=== PATIENT | male | born 1945 | race African-American/Black ===

== ENCOUNTER 2017-04-21 10:06 | Emergency (ER) | payer SELFPAY ==
[~2017-04-21] VITALS: Ht 177.8 cm; Wt 80.9 kg
[~2017-04-21 10:06] MED LIST: ATENOLOL50 MG PO; BACTRIM DS 8001 TAB PO; BENADRYL25 M2 PO; CARTIA XT300 MG PO; CEPHALEXIN500 M1 PO; COZAAR100 MG PO; GLUCOPHAGE1000 MG PO; GLYBURIDE MICRON3 MG PO; HCTZ 25MG25 MG PO; LORATADINE10 MG PO; METFORMIN HCL500 M1 PO; MINIPRESS2 MG PO; MOTRIN 800800 MG/TAB PO; NEURONTIN300 MG/CAP PO; POTASSIUM CHLO10 ME2 PO; PREDNISONE10 MG PO; SILDENAFIL; SIMVASTATIN10 MG PO; ZOLOFT 100MG100 MG PO
[2017-04-21 10:19] VITALS: TEMP 98
[2017-04-21 10:48] LABS: BASO % 0.6 % (0.0-2.0); EOS # 0.1 (0.0-0.7); EOS % 1.4 % (0-4.0); GRAN # 3.5 (1.4-6.5); GRAN % 54.1 % (42.2-75.2); HEMATOCRIT 42.8 % (42.0-52.0); HEMOGLOBIN 14.6 g/dl (13.5-18.0); LYMPH # 2.3 (1.2-3.4); LYMPH % 35.7 % (20.0-51.0); MEAN CELL VOLUME 88 fl (80.0-100.0); MEAN CORPUSCULAR HEMOGLOBIN 30 pg (27.0-31.0); MEAN CORPUSCULAR HGB CONC 34 g/dl (33.0-37.0); MEAN PLATELET VOLUME 10.1 fl (7.4-10.4); MONO # 0.5 (0.1-0.6); PLATELET COUNT 215 K/mm3 (130-400); RED BLOOD COUNT 4.89 M/mm3 (4.20-5.60); REDCELL DISTRIBUTION WIDTH-CV 12.9 % (11.5-14.5)
[2017-04-21 10:54] LABS: PARTIAL THROMBOPLASTIN TIME 20.7 SECONDS (26.0-37.0)
[2017-04-21 10:58] LABS: ALANINE AMINOTRANSFERASE 34 U/L (21-72); ALBUMIN 4.5 gm/dL (3.5-5.0); ALKALINE PHOSPHATASE 56 U/L (50-136); ANION GAP 9 mmol/L (7-16); AST,SGOT 24 U/L (15-37); BILIRUBIN,TOTAL 0.1 mg/dL (0.0-1.0); BLOOD UREA NITROGEN 14 mg/dL (9-20); CALCIUM 9.7 mg/dL (8.4-10.2); CARBON DIOXIDE 24 mmol/L (22-30); CHLORIDE 104 mmol/L (98-107); CREATININE, serum 0.78 mg/dL (0.66-1.25); GLUCOSE 155 mg/dL (74-106); SODIUM 137 mmol/L (137-145); TOTAL PROTEIN 7.4 gm/dL (6.4-8.2)
[2017-04-21 11:10] LABS: TROPONIN-I < 0.012 ng/mL (0.000-0.034)
[2017-04-21 13:33] VITALS: BP 111/92; PULSE 50
== END 2017-04-21 13:34 | disposition home or self-care (01) ==
LOC: COL.ER 10:06
PROVIDERS: Family Medicine
DX: R07.9 Chest pain, unspecified (principal); I10 Essential (primary) hypertension; F17.290 Nicotine dependence, other tobacco product, uncomplicated; Z79.84 Long term (current) use of oral hypoglycemic drugs
CPT/HCPCS: J1885

== ENCOUNTER 2019-04-04 17:29 | Emergency (ER) | payer OTHER ==
[~2019-04-04] VITALS: Ht 177.8 cm; Wt 75.0 kg
[2019-04-04 17:54] VITALS: BP 98/63; TEMP 97.7
[2019-04-04 18:47] LABS: BASO # 0.1 (0.0-0.2); BASO % 0.7 % (0.0-2.0); EOS # 0.2 (0.0-0.7); EOS % 2.1 % (0-4.0); GRAN # 3.9 (1.4-6.5); GRAN % 50.9 % (42.2-75.2); HEMATOCRIT 42.4 % (42.0-52.0); HEMOGLOBIN 14.6 g/dl (13.5-18.0); LYMPH # 2.9 (1.2-3.4); LYMPH % 38.1 % (20.0-51.0); MEAN CELL VOLUME 86 fl (80.0-100.0); MEAN CORPUSCULAR HEMOGLOBIN 30 pg (27.0-31.0); MEAN CORPUSCULAR HGB CONC 34 g/dl (33.0-37.0); MEAN PLATELET VOLUME 10.7 fl (7.4-10.4); MONO # 0.6 (0.1-0.6); MONO % 7.9 % (1.7-9.3); PLATELET COUNT 180 K/mm3 (130-400); RED BLOOD COUNT 4.93 M/mm3 (4.20-5.60); REDCELL DISTRIBUTION WIDTH-CV 12.2 % (11.5-14.5)
[2019-04-04 19:02] LABS: ALANINE AMINOTRANSFERASE 26 U/L (21-72); ALBUMIN 4.3 gm/dL (3.5-5.0); ALKALINE PHOSPHATASE 73 U/L (50-136); ANION GAP 9 mmol/L (7-16); AST,SGOT 33 U/L (15-37); BILIRUBIN,TOTAL 0.3 mg/dL (0.0-1.0); BLOOD UREA NITROGEN 19 mg/dL (9-20); CALCIUM 9.9 mg/dL (8.4-10.2); CARBON DIOXIDE 27 mmol/L (22-30); CHLORIDE 101 mmol/L (98-107); CREATININE, serum 0.76 (0.66-1.25); GLUCOSE 230 mg/dL (74-106); LIPASE 193 U/L (23-300); POTASSIUM 3.5 mmol/L (3.4-5.0); SODIUM 137 mmol/L (137-145); TOTAL PROTEIN 7.2 gm/dL (6.4-8.2)
[2019-04-04 19:10] LABS: C-REACTIVE PROTEIN < 0.5 mg/dL (0.0-0.9)
[2019-04-04 19:11] LABS: TROPONIN-I < 0.012 ng/mL (0.000-0.035)
[2019-04-04 19:23] LABS: ERYTHROCYTE SEDIMENTATION RATE 6 mm/hr (0-30)
[2019-04-04 19:36] LABS: COLLECTION METHOD CLEAN CATCH
[2019-04-04 19:43] LABS: MUCOUS Present /lpf; PH 5 (5-8); SQUAMOUS EPITHELIAL None Seen /hpf; URINE APPEARANCE Clear; URINE BACTERIA None Seen /hpf; URINE BILIRUBIN Negative (NEGATIVE); URINE BLOOD Negative (NEGATIVE); URINE COLOR Yellow; URINE GLUCOSE Negative (NEGATIVE); URINE KETONE Negative (NEGATIVE); URINE LEUKOCYTE ESTERASE Negative (NEGATIVE); URINE NITRATE Negative (NEGATIVE); URINE PROTEIN(semi-quant) Negative (NEGATIVE); URINE RBC 0-2 /hpf; URINE UROBILINOGEN Negative (NEGATIVE)
[2019-04-04 21:15] VITALS: PULSE 50
== END 2019-04-04 21:15 | disposition home or self-care (01) ==
LOC: COL.ER 17:29
PROVIDERS: Emergency Medicine
DX: K42.9 Umbilical hernia without obstruction or gangrene (principal); R51 Headache; E11.9 Type 2 diabetes mellitus without complications; I10 Essential (primary) hypertension; E78.5 Hyperlipidemia, unspecified; Z79.1 Long term (current) use of non-steroidal anti-inflammatories (NSAID); Z79.84 Long term (current) use of oral hypoglycemic drugs
CPT/HCPCS: J2405; J3010; J7030; Q9967

== ENCOUNTER → 2020-01-08 | Outpatient (CLI) | payer OTHER | LOC: COL.RAD 09:55 | DX: E11.42 Type 2 diabetes mellitus with diabetic polyneuropathy (principal); M51.36 Other intervertebral disc degeneration, lumbar region; M47.816 Spondylosis without myelopathy or radiculopathy, lumbar region; M48.061 Spinal stenosis, lumbar region without neurogenic claudication ==

== ENCOUNTER 2020-03-01 09:31 | Inpatient (IN) | payer OTHER ==
[~2020-03-01] VITALS: Ht 177.8 cm; Wt 80.6 kg
[~2020-03-01 09:31] MED LIST changes: -ATENOLOL50 MG PO; +HCTZ 25MG TAB25 MG PO; -HCTZ 25MG25 MG PO; +TENORMIN 5050 MG/TAB PO
[2020-03-01 09:54] LABS: BASO # 0.1 (0.0-0.2); BASO % 0.7 % (0.0-2.0); EOS # 0.1 (0.0-0.7); EOS % 1.9 % (0-4.0); GRAN # 4.9 (1.4-6.5); GRAN % 66.8 % (42.2-75.2); HEMOGLOBIN 12.1 g/dl (13.5-18.0); LYMPH # 1.7 (1.2-3.4); LYMPH % 22.4 % (20.0-51.0); MEAN CELL VOLUME 86 fl (80.0-100.0); MEAN CORPUSCULAR HEMOGLOBIN 28 pg (27.0-31.0); MEAN CORPUSCULAR HGB CONC 33 g/dl (33.0-37.0); MEAN PLATELET VOLUME 9.7 fl (7.4-10.4); MONO # 0.6 (0.1-0.6); MONO % 7.9 % (1.7-9.3); PLATELET COUNT 269 K/mm3 (130-400); RED BLOOD COUNT 4.28 M/mm3 (4.20-5.60); REDCELL DISTRIBUTION WIDTH-CV 13.6 % (11.5-14.5)
[2020-03-01 09:56] LABS: HEMATOCRIT 36.7 % (42.0-52.0)
[2020-03-01 10:05] LABS: ALANINE AMINOTRANSFERASE 16 U/L (4-49); ALBUMIN 4.1 gm/dL (3.5-5.0); ALKALINE PHOSPHATASE 49 U/L (50-136); ANION GAP 8 mmol/L (7-16); AST,SGOT 37 U/L (15-37); BILIRUBIN,TOTAL 0.2 mg/dL (0.0-1.0); BLOOD UREA NITROGEN 11 mg/dL (9-20); CALCIUM 9.3 mg/dL (8.4-10.2); CARBON DIOXIDE 23 mmol/L (22-30); CHLORIDE 106 mmol/L (98-107); CREATININE, serum 0.78 (0.66-1.25); GLUCOSE 150 mg/dL (74-106); POTASSIUM 3.9 mmol/L (3.4-5.0); SODIUM 137 mmol/L (137-145); TOTAL PROTEIN 6.9 gm/dL (6.4-8.2)
[2020-03-01 10:18] LABS: TROPONIN-I < 0.012 ng/mL (0.000-0.035)
[2020-03-01] MEDS ORDERED: LIPITOR 40MG TA40 MG PO (12:21)
[2020-03-01] MEDS ORDERED: ASPIRIN 81M81 MG/TA2 PO (12:22)
[2020-03-01 15:01] VITALS: BP 145/55; PULSE 57; TEMP 98.5
--- NOTE | 2020-03-01 15:25 | NUR ---
Patient up to room 326 from ER. Alert and oriented x 3. Assessment complete. Chest tube to right chest to LIS; having bloody drainage. Patient denies pain when laying in bed, but increased pain with movement. Refuses pain meds at this time. Denies further needs at this time.
--- NOTE | 2020-03-01 17:23 | NUR ---
Educated patient on insulin and holding metformin for hospital stay.
--- NOTE | 2020-03-01 18:01 | NUR ---
Patient doing well this afternoon. Educated on chest tube. Denies pain at this time. Remains on 2L O2 via NC. Denies further needs at this time. Will report off to nightclub manager.
--- NOTE | 2020-03-01 20:00 | NUR ---
Report received, assumed care for night custodian. Assessment complete. A&Ox3. Denies pain/nausea/shortness of breath. VS stable. Chest tube to right side-dressing CDI-continuous suction @20cm. Plan of care discussed for this shift to include HS meds/insulin/chest tube/calling for questions/concerns. Verbalizes understanding. Voicing concnerns about insulin vs PO diabetic meds. States blood sugars are never as high as they are right now and the insulin seems to not be working. After long discussion-too 4 units of novolog and agreed to recheck bedside glucose at 0000. Denies any other questions/concerns. Call light in reach. Will monitor.
[2020-03-01 20:27] VITALS: BP 138/52; PULSE 5; TEMP 98.2
[2020-03-02] VITALS (7 sets, daily range): BP systolic 121–160; BP diastolic 46–56; PULSE 42–55; TEMP 97.9–98.3
--- NOTE | 2020-03-02 00:15 | NUR ---
As requested-bedside glucose [id number] receiving HS dose of sliding scale Novolog. States he is happy with this result. Chest tube at continuous suction at 20cm-reddish return. Denies pain/needs. Call light in reach. Will monitor.
--- NOTE | 2020-03-02 00:30 | NUR ---
Called with c/o cough/congestion. Requesting robitussin. KYLE Downs notified and new order received. Will continue to monitor.
--- NOTE | 2020-03-02 06:00 | NUR ---
Rested well this shift. Chest tube to right side-dressing remained CDI-total output for this shift 25ml reddish fluid. Denies pain/nausea/short of breath. VS remained stable. Was happy to see blood sugar did get better with sliding scale. Denies current needs. Call light in reach. Will monitor.
[2020-03-02 06:53] LABS: BASO % 0.2 % (0.0-2.0); EOS % 0.1 % (0-4.0); GRAN % 73.7 % (42.2-75.2); HEMOGLOBIN 10.4 g/dl (13.5-18.0); LYMPH # 1.9 (1.2-3.4); LYMPH % 17.2 % (20.0-51.0); MEAN CELL VOLUME 86 fl (80.0-100.0); MEAN CORPUSCULAR HEMOGLOBIN 28 pg (27.0-31.0); MEAN CORPUSCULAR HGB CONC 33 g/dl (33.0-37.0); MEAN PLATELET VOLUME 10.1 fl (7.4-10.4); MONO # 0.9 (0.1-0.6); MONO % 8.2 % (1.7-9.3); PLATELET COUNT 240 K/mm3 (130-400); RED BLOOD COUNT 3.69 M/mm3 (4.20-5.60); REDCELL DISTRIBUTION WIDTH-CV 13.2 % (11.5-14.5)
[2020-03-02 06:59] LABS: HEMATOCRIT 31.6 % (42.0-52.0)
[2020-03-02 07:01] LABS: CALCIUM 8.6 mg/dL (8.4-10.2); CREATININE, serum 0.69 (0.66-1.25); POTASSIUM 3.7 mmol/L (3.4-5.0)
--- NOTE | 2020-03-02 08:00 | NUR ---
PATIENT IS A&O. VSS. NO C/O PAIN THIS AM. CHEST TUBE TO LIS AT 20. NOTED SMALL AMOUNTS OF BLOODY DRAINAGE IN CHEST TUBE. 02 @ 2L. NO C/O SOA AT REST, SOME DYSPNEA WITH ACTIVITY. RIGHT LUNG FIELD DEMINISHED IN BASES AND COARSE. PT/OT CONSULTED. AM MEDS GIVEN. NO C/O N/V. TOLERATING ADA DIET. HEAD TO TOE ASSESSMENT COMPLETE. CALL LIGHT IN REACH.
--- NOTE | 2020-03-02 10:39 | NUR ---
SW met with patient to conduct intake evaluation. Patient lives at home in [place] with his Jessica (P# [phone]). Patient reports no needs with activities of daily living and requires no medical equipment. Patient reports that he does not have a DPOA and does not wish to fill out paperwork at this time. Patient sees a doctor at the NH in [place] and uses the NH for medications. PT/OT notes recommend Home at this time. Patient denies questions or concerns at this time. Social work will continue to follow.
--- NOTE | 2020-03-02 19:45 | NUR ---
Report received, assumed care for business area director. Assessment complete. VS stable. A&Ox3. Denies shortness of breath/nausea. States "I get a little winded when I get up to walk." C/O pain to right chest-described as intermittent sharp pains and constant ache. Rating pain 6/10 on pain scale-hydrocodone given per dr order. Plan of care discussed for this shift to include bedside glucose with s/s, pain meds PRN, calling for questions/concerns. Verbalizes understanding. Call light in reach. Will monitor.
--- NOTE | 2020-03-02 23:21 | NUR ---
Called with c/o nausea. States he ate to much and the supper meal is not sitting well with him. Zofran given per order. Provided a basin as well. Call light in reach. Will monitor.
[2020-03-03] VITALS (8 sets, daily range): BP systolic 129–179; BP diastolic 47–68; PULSE 47–88; TEMP 98–99
--- NOTE | 2020-03-03 00:15 | NUR ---
Called stating the zofran didnt help the stomach pain. Discussed it further and states he thinks Tums will "do the trick." Called KYLE Downs-new orders received for Tums. Also discussed when last BM was. States it was Tuesday morning before admission. States he usually has a BM every other day. Will re-evaluate Tums.
--- NOTE | 2020-03-03 01:31 | NUR ---
RT came to desk stating patient was c/o previous stomach pain stating zofran and tums didnt help. This nurse went to room and patient appears to be sleeping-eyes closed/audible snore. Will reassess when awake.
--- NOTE | 2020-03-03 01:44 | NUR ---
Spoke with patient again about abdominal pain-states he thinks he is constipated. Discussed colace and suppositories but requested Milk of Mag. KYLE Downs notified and new orders received. Will monitor.
--- NOTE | 2020-03-03 02:22 | NUR ---
PCT reports elevated BP-160s/60s. Manual completed by this nurse-148/[id number]
--- NOTE | 2020-03-03 05:49 | NUR ---
Chest tube to water seal at this time. Instructed to call for any increased shortness of breath/pain. Verbalizes understanding. Call light in reach. Will monitor.
--- NOTE | 2020-03-03 06:51 | NUR ---
Sitting up in bed, having nausea and one episode of emesis. ELIOT Gaines, administered Zofran as prescribed. Patient says that his stomach is upset because he needs to have a bowel movement. Right lung teixeira diminished. RIght chest tube to water seal, bloody discharge noted in tubing and cannister. Dressing to chest tube CDI. Denies pain. Patient assisted into bathroom and he will call when done to get back to bed.
--- NOTE | 2020-03-03 07:36 | NUR ---
Sitting in bed eating breakfast at this time.
--- NOTE | 2020-03-03 07:50 | NUR ---
Having some pain in back and requests pain medication. Administer pain medication as prescribed.
[2020-03-03 08:03] LABS: BASO % 0.2 % (0.0-2.0); EOS % 0.1 % (0-4.0); GRAN % 83.6 % (42.2-75.2); HEMATOCRIT 38.1 % (42.0-52.0); LYMPH % 10.5 % (20.0-51.0); MEAN CELL VOLUME 86 fl (80.0-100.0); MEAN CORPUSCULAR HEMOGLOBIN 28 pg (27.0-31.0); MEAN CORPUSCULAR HGB CONC 33 g/dl (33.0-37.0); MEAN PLATELET VOLUME 10.1 fl (7.4-10.4); MONO # 0.5 (0.1-0.6); MONO % 5.2 % (1.7-9.3); PLATELET COUNT 238 K/mm3 (130-400); RED BLOOD COUNT 4.45 M/mm3 (4.20-5.60); REDCELL DISTRIBUTION WIDTH-CV 13.5 % (11.5-14.5)
[2020-03-03 08:05] LABS: HEMOGLOBIN 12.5 g/dl (13.5-18.0)
[2020-03-03 08:10] LABS: CALCIUM 9.3 mg/dL (8.4-10.2); CREATININE, serum 0.73 (0.66-1.25); POTASSIUM 3.8 mmol/L (3.4-5.0)
--- NOTE | 2020-03-03 09:30 | NUR ---
Dr. Wilcox in to see patient and he pulls chest tube at this time. Patient tolerates with little difficulty. Vaseline gauze dressing applied and taped to site. Respiratory contacted and informed that we would like to try to get patient weaned off oxygen and if unable we will need to look at doing the pulse oximetry exercise test.
--- NOTE | 2020-03-03 10:38 | NUR ---
Patient has episode of emesis, approximately 300mL. ELIOT Payne, assisted patient. ADDISON Hawk, updated.
--- NOTE | 2020-03-03 12:18 | NUR ---
Patient lying in bed with eyes closed. Opens eyes when name called out. Denies pain or nausea. Patient says that he is tired because he did not get any sleep last night due to pain from constipation. Patient says that he did have a small stool but his stomach is feeling a little better. Says that he is breathing okay at this time. Oxygen on at 3L/NC. Patient denies needs at this time.
--- NOTE | 2020-03-03 14:45 | NUR ---
Patient asks if he is going to be discharged. Spoke with ADDISON Hawk, and she says that she will review everything with Dr. Vazquez and let us know. Patient updated. Denies additional needs at this time.
--- NOTE | 2020-03-03 15:32 | NUR ---
ADDISON Hawk, in room to discuss plan of care with patient and keeping him tonight to continue to monitor.
--- NOTE | 2020-03-03 15:46 | NUR ---
Lying in bed with eyes open. Patient expresses some frustration with not being able to go home but understands the rationale. Denies pain or nausea. Fresh ice water provided. Denies additional needs.
--- NOTE | 2020-03-03 15:47 | NUR ---
Radiology staff here to take patient for CT.
--- NOTE | 2020-03-03 16:08 | NUR ---
Patient back to room from CT.
--- NOTE | 2020-03-03 17:10 | NUR ---
Lying in bed on right side with eyes closed. Respirations even and unlabored. Oxygen on at 3L/NC. No signs or symptoms of discomfort noted.
--- NOTE | 2020-03-03 20:00 | NUR ---
Report received, assuemd care for awake overnight counselor. Assessment complete. VS stable. A&Ox3. Denies pain/nausea/shortness of breath at rest. States short of air with activity. Currently O2@3L/NC with saturations 92-94%. All lung field swith exp wheezes. Dressing to right side CDI. States he feels better but hopes to sleep tonight as he had a difficult night. Plan of care discussed for this shift to inlude bedside glucose/monitoring VS and calling for questions/concerns. Verbalizes understanding/denies needs. Call light in reach. Will monitor.
--- NOTE | 2020-03-04 00:30 | NUR ---
Resting eyes closed. No s/s of pain noted.
[2020-03-04 04:35] VITALS: BP 127/52; PULSE 50; TEMP 98
--- NOTE | 2020-03-04 06:38 | NUR ---
Rested well this shift. Denied pain/nausea. Short of breath with activity. Remained on O2@3L/NC. VS stable. Dressing to right chest CDI. Denies current needs. Call light in reach. Will monitor.
[2020-03-04 07:25] VITALS: BP 128/49; PULSE 61; TEMP 98.7
[2020-03-04 07:43] LABS: BASO % 0.5 % (0.0-2.0); EOS # 0.1 (0.0-0.7); GRAN # 5.8 (1.4-6.5); GRAN % 67.6 % (42.2-75.2); HEMOGLOBIN 12.2 g/dl (13.5-18.0); LYMPH # 1.9 (1.2-3.4); LYMPH % 21.7 % (20.0-51.0); MEAN CELL VOLUME 87 fl (80.0-100.0); MEAN CORPUSCULAR HEMOGLOBIN 29 pg (27.0-31.0); MEAN CORPUSCULAR HGB CONC 33 g/dl (33.0-37.0); MEAN PLATELET VOLUME 10.3 fl (7.4-10.4); MONO # 0.8 (0.1-0.6); MONO % 8.7 % (1.7-9.3); PLATELET COUNT 237 K/mm3 (130-400); REDCELL DISTRIBUTION WIDTH-CV 13.5 % (11.5-14.5)
[2020-03-04 07:51] LABS: HEMATOCRIT 36.5 % (42.0-52.0)
[2020-03-04 08:02] LABS: CREATININE, serum 0.79 (0.66-1.25); POTASSIUM 3.7 mmol/L (3.4-5.0)
[2020-03-04] MEDS ORDERED: NORVASC 5MG5 MG/TAB PO (08:44)
[2020-03-04 11:48] VITALS: BP 159/62; PULSE 57; TEMP 98.7
[2020-03-04] MEDS ORDERED: OXYGEN (11:52)
--- NOTE | 2020-03-04 13:00 | NUR ---
Patient is discharging home. He is upset because he feels like we are not telling him the truth about why he has not left yet. Explained that we are waiting for the oxygen. He is upset because the oxygen was supposed to be delivered at 1230. Explained sometimes they have delays but will discharge him as soon it arrives. Patient has several questions. Discussed and answered all the ones I could. Patient stated he will wait for his oxygen. No other changes at this time. Call light within reach.
--- NOTE | 2020-03-04 14:39 | NUR ---
Web Services Architect attended clinical rounds with the team. He is ready for discharge today, 03/04. The patient qualifies for 3L of oxygen. After rounds CLAUDIA met with the patient to discuss his options. The patient does have Medicare and [employer]. He agreeable to whichever could get him the oxygen today since he is ready for discharge. CLAUDIA contacted Red Team RN, left message. CLAUDIA contacted the patient's to discuss which payor they will use and which DME company. The patient's would like to use Medicare and [facility] for DME. CLAUDIA faxed oxygen order. Oxygen delivered. CLAUDIA discussed home health services and provided Medicare.gov's list of home health agencies that serve [facility] to the patient. He chose [facility]. Referral for [facility] faxed. Cori reports they can accept the patient for services. Discharge orders faxed. No additional needs.
--- NOTE | 2020-03-04 15:29 | NUR ---
Patient is discharging home at this time. He has his oxygen with him. Reminded him to wear it at all times. Explained the appointments he needs to make. Patient verbalized understanding. Explained when his follow up with Dr Vargas. is. Explained that his new BP medication has been sent to pharmacy. He has several questions, answered them the best I could. Asked Arabella JAIME as well. Explained when to remove the dressing from his chest tube site. Patient verbalized understanding. No other questions at this time. Copies of discharge instructions sent with patient. Patient walked out with Luly BONNER.
== END 2020-03-04 15:30 | disposition home health service (06) | DRG 199 ==
LOC: COL.ER 09:31 → SURG 11:35
PROVIDERS: Emergency Medicine; Physician Assistant; ADMIT Family Medicine
PROC: 0W9930Z Drainage of Right Pleural Cavity with Drainage Device, Percutaneous Approach (ICD-10-PCS; principal; 2020-03-01)
DX: J93.0 Spontaneous tension pneumothorax (principal); J96.01 Acute respiratory failure with hypoxia; E87.2 Acidosis; J43.9 Emphysema, unspecified; N28.89 Other specified disorders of kidney and ureter; Z20.822 Contact with and (suspected) exposure to COVID-19; K59.00 Constipation, unspecified; I10 Essential (primary) hypertension; E11.9 Type 2 diabetes mellitus without complications; F32.9 Major depressive disorder, single episode, unspecified; E78.5 Hyperlipidemia, unspecified; F17.200 Nicotine dependence, unspecified, uncomplicated; Z79.82 Long term (current) use of aspirin; Z79.84 Long term (current) use of oral hypoglycemic drugs; Z88.2 Allergy status to sulfonamides
CPT/HCPCS: 99232-AI; A9284; J1100; J1650; J1815; J2405; J2704; J3010; J7030; Q9967

== ENCOUNTER 2020-04-09 00:30 | Inpatient (IN) | payer OTHER ==
[~2020-04-09] VITALS: Ht 177.8 cm; Wt 78.2 kg
[~2020-04-09 00:30] MED LIST changes: +ASPIRIN 81M81 MG/TA2 PO; +LIPITOR 80MG80 MG PO; +NORVASC 5MG5 MG/TAB PO; +OXYGEN
--- NOTE | 2020-04-09 19:15 | NUR ---
To room 350 from ED via stretcher. Oriented to room and policy. Admission assessment complete. VS stable. A&Ox3. Denies pain/nausea/shortness of breath. Heimlich cath to right chest. Dressing CDI. Plan of care discussed for this shift to include HS meds/pain control/chest x ray in AM/calling for questions/concerns. Verbalizes understanding. Denies needs. Call light in reach. Will monitor.
[2020-04-10] VITALS (7 sets, daily range): BP systolic 135–150; BP diastolic 57–72; PULSE 60–71; TEMP 97.3–98.5
--- NOTE | 2020-04-10 00:30 | NUR ---
Resting eyes closed. No s/s of pain/discomfort noted. O2 remains at 3L/NC.
--- NOTE | 2020-04-10 05:35 | NUR ---
Rested well this shift. Denies pain/nausea/shortness of breath. O2 remains @3L/NC with sats 92-98%. Dressing to Heimlich cath-right chest CDI. Denies current needs. Call light in reach. Will monitor.
[2020-04-10 09:26] LABS: HEMOGLOBIN 12.1 g/dl (13.5-18.0); MEAN CELL VOLUME 83 fl (80.0-100.0); MEAN CORPUSCULAR HEMOGLOBIN 28 pg (27.0-31.0); MEAN CORPUSCULAR HGB CONC 34 g/dl (33.0-37.0); MEAN PLATELET VOLUME 9.2 fl (7.4-10.4); PLATELET COUNT 237 K/mm3 (130-400); RED BLOOD COUNT 4.35 M/mm3 (4.20-5.60); REDCELL DISTRIBUTION WIDTH-CV 13.9 % (11.5-14.5)
[2020-04-10 09:30] LABS: HEMATOCRIT 36.1 % (42.0-52.0)
[2020-04-10 09:47] LABS: ALBUMIN 3.9 gm/dL (3.5-5.0); BILIRUBIN,TOTAL 0.3 mg/dL (0.0-1.0); CALCIUM 9.5 mg/dL (8.4-10.2); CREATININE, serum 0.83 (0.66-1.25); POTASSIUM 3.8 mmol/L (3.4-5.0); TOTAL PROTEIN 6.7 gm/dL (6.4-8.2)
[2020-04-10 09:55] LABS: ALANINE AMINOTRANSFERASE 17 U/L (4-49); ALBUMIN 4.4 gm/dL (3.5-5.0); ALKALINE PHOSPHATASE 37 U/L (50-136); ANION GAP 12 mmol/L (7-16); AST,SGOT 31 U/L (15-37); BILIRUBIN,TOTAL 0.4 mg/dL (0.0-1.0); BLOOD UREA NITROGEN 13 mg/dL (9-20); C-REACTIVE PROTEIN < 0.5 mg/dL (0.0-0.9); CALCIUM 9.8 mg/dL (8.4-10.2); CARBON DIOXIDE 24 mmol/L (22-30); CHLORIDE 102 mmol/L (98-107); CREATININE, serum 0.84 (0.66-1.25); GLUCOSE 133 mg/dL (74-106); POTASSIUM 3.9 mmol/L (3.4-5.0); SODIUM 138 mmol/L (137-145); TOTAL PROTEIN 7.4 gm/dL (6.4-8.2); TROPONIN-I < 0.012 ng/mL (0.000-0.035)
[2020-04-10] MEDS ORDERED: NESINA25 PO (12:41)
[2020-04-10] MEDS ORDERED: NORVASC 10MG10 MG PO (12:49)
[2020-04-10] MEDS ORDERED: NEURONTIN100 MG/CAP PO (12:52)
[2020-04-10] MEDS ORDERED: OPTIVE SENSITI0.4 ML OP (12:52)
[2020-04-10] MEDS ORDERED: GLUCOTROL10 MG PO (12:53)
--- NOTE | 2020-04-10 12:53 | NUR ---
WENT TO SEE PATIENT TODAY AND THEY HAD ALREADY HAD CAFFINE ABOUT AN HOUR BEFORE I SAW THEM. PATIENT AND RN WAS INFORMED NOT TO HAVE ANY BREATHING TX OR CAFFINE 6 HOURS BEFORE TEST. WILL SEE PATIENT FIRST THING IN AM.
[2020-04-10] MEDS ORDERED: COZAAR100 MG PO (12:55)
[2020-04-10] MEDS ORDERED: ATARAX 10MG10 MG/TAB PO (12:55)
[2020-04-10] MEDS ORDERED: MINIPRESS2 MG PO (12:57)
[2020-04-10] MEDS ORDERED: VIAGRA50 M1 PO (13:00)
--- NOTE | 2020-04-10 13:06 | NUR ---
First visit from the pediatric ophthalmologist. No needs right now.
--- NOTE | 2020-04-10 13:46 | NUR ---
CLAUDIA met with the patient and his , Jessica (ph#[phone]), to discuss discharge plan. He reports independence with ADLs and does not have any assistive devices. He has home oxygen from [facility]. The patient receives primary care from the the [facility] and he receives his medications from the [place]. The patient does not have a DPOA-HC, but he was interested in obtaining a form. CLAUDIA provided. The patient plans to return home with his upon discharge. No additional needs at this time.
[2020-04-10 14:00] LABS: BASO # 0.1 (0.0-0.2); BASO % 0.7 % (0.0-2.0); EOS # 0.2 (0.0-0.7); EOS % 1.8 % (0-4.0); GRAN # 6.2 (1.4-6.5); GRAN % 67.8 % (42.2-75.2); HEMATOCRIT 39.4 % (42.0-52.0); HEMOGLOBIN 12.8 g/dl (13.5-18.0); LYMPH # 1.9 (1.2-3.4); LYMPH % 21.3 % (20.0-51.0); MEAN CELL VOLUME 87 fl (80.0-100.0); MEAN CORPUSCULAR HEMOGLOBIN 28 pg (27.0-31.0); MEAN CORPUSCULAR HGB CONC 33 g/dl (33.0-37.0); MEAN PLATELET VOLUME 10.1 fl (7.4-10.4); MONO # 0.7 (0.1-0.6); MONO % 8.2 % (1.7-9.3); PLATELET COUNT 240 K/mm3 (130-400); RED BLOOD COUNT 4.55 M/mm3 (4.20-5.60); REDCELL DISTRIBUTION WIDTH-CV 14.2 % (11.5-14.5)
--- NOTE | 2020-04-10 18:30 | NUR ---
Patient has been doing well today. This morning he was worried about his medication list updated. He stated he is not getting his home medications correctly. His brought the list and we got it updated. Dr Magallon restarted the medications and reviewed the list. Patient denies pain and nausea. He has been up in the room moving around. He is eating and drinking without issues. Chest tube in place, no drainage, dressing clean an dry. No other changes at this time. Call light within reach.
[2020-04-11 04:00] VITALS: BP 123/54; PULSE 58; TEMP 98.1
--- NOTE | 2020-04-11 05:51 | NUR ---
Patient did well throughout the shift. No complaints of pain. R heimlich cath dressing clean, dry, and intact. Patient on 3 L of oxygen via nasal cannula. Getting up to use the bathroom indepedently throughout the night.
[2020-04-11 07:03] VITALS: BP 147/57; PULSE 64; TEMP 98.1
--- NOTE | 2020-04-11 08:31 | NUR ---
Patient alert and oriented, answers questions appropriately. See assessment. Lungs CTA. Heimlich valve in place to right chest, dressing loose with drainage noted, new dressing applied. No c/o SOA or pain at this time.
--- NOTE | 2020-04-11 09:27 | NUR ---
Oxygen decreased to 2l/nc, oximeter 92%.
--- NOTE | 2020-04-11 10:25 | NUR ---
Eye drops given late, needed to wait for pharmacy.
[2020-04-11 11:58] VITALS: BP 136/59; PULSE 63; TEMP 98.2
--- NOTE | 2020-04-11 13:38 | NUR ---
End of clinical day. Patient resting comfortably in his bed. Denies any SOB, dyspnea or pain. No concerns at this time.
[2020-04-11 16:00] VITALS: BP 140/64; PULSE 65; TEMP 98.3
--- NOTE | 2020-04-11 22:30 | NUR ---
SHIFT ASSESSMENT COMPLETE. DENIES PAIN. STATES HE FINALLY GO WARM. INT INTACT TO LEFT FA. ACCU CK AT HS 173 AND RECEIVED 4UNITS NOVOLOG. VS MONITORED. REPOSITIONS SELF IN BED. CALL LIGHT IN REACH.
--- NOTE | 2020-04-11 23:21 | NUR ---
REPORT RECEIVED FROM DAY SHIFT NURSE. PT RESTING IN BED WITH AT BEDSIDE. DENIES ANY DISCOMFORT OR NEEDS. CALL LIGHT IN REACH. WARM BLANKET GIVEN TO PT PER REQUEST OF BEING COLD.
[2020-04-11 23:38] VITALS: BP 138/57; PULSE 65; TEMP 98.5
[2020-04-12 05:12] VITALS: BP 134/47; PULSE 55; TEMP 98.1
--- NOTE | 2020-04-12 06:16 | NUR ---
ACCU CHECK 127. REPORTS FEELING BETTER THIS AM. SCHEDULED FOR A CXR THIS AM PER ORDERS. CALL LIGHT IN REACH.
--- NOTE | 2020-04-12 07:01 | NUR ---
PT ASLEEP WITH SNORING RESP. SHIFT REPORT GIVEN TO DAY SHIFT NURSE.
[2020-04-12 07:31] VITALS: BP 148/60; PULSE 60; TEMP 98
--- NOTE | 2020-04-12 09:13 | NUR ---
Patient sitting at edge of bed finishing breakfast. He denies complaints, just curious when doctor will round because he is wanting to get home. He tolerated breakfast. Denies SOB, using oxygen. He reports having Oxygen set up at home from prior hospitalization. Int. Will monitor.
--- NOTE | 2020-04-12 10:59 | NUR ---
PT RESTING IN BED O2 TURNED OFF FOR APPROX 5 MINUTES SPO2 87-88% ON ROOM AIR. O2 BACK ON @ 2 LPM SPO2 QUICKLY RECOVERED TO 92%
[2020-04-12 11:04] VITALS: BP 154/74; PULSE 70; TEMP 97.9
[2020-04-12] MEDS ORDERED: INCRUSE EL62.5 MCG/A IH (11:46)
[2020-04-12] MEDS ORDERED: PROAIR HFA0.09 MG/AC IH (11:46)
--- NOTE | 2020-04-12 12:52 | NUR ---
& hospitalist have rounded. Discharge orders obtained. Patient ready to get home. Hospital inhaulers sent home with patient. He is aware he has scripts at [facility]. We reviewed the importance of follow up appts, he reports he has appt for on Tuesday already previously scheduled. Patient aware of the importnace of making other follow ups on tuesday. Patient already has home O2. We reviewed prior chest tube site cares. We discussed signs and symptoms of when to call doctor or seek medical cares. Home med list reviewed with last dose taken. Patient wheeled out with all belongings. INT dc. His taking him home.
== END 2020-04-12 12:58 | disposition home or self-care (01) | DRG 200 ==
LOC: COL.ER 00:30 → SURG 19:58
PROVIDERS: ADMIT Surgery
PROC: 0W9930Z Drainage of Right Pleural Cavity with Drainage Device, Percutaneous Approach (ICD-10-PCS; principal; 2020-04-09)
DX: J93.83 Other pneumothorax (principal); J96.11 Chronic respiratory failure with hypoxia; D64.9 Anemia, unspecified; I10 Essential (primary) hypertension; E11.42 Type 2 diabetes mellitus with diabetic polyneuropathy; G47.00 Insomnia, unspecified; F32.9 Major depressive disorder, single episode, unspecified; F41.9 Anxiety disorder, unspecified; J43.9 Emphysema, unspecified
CPT/HCPCS: 99223; 99232-AI; 99239; J1650; J1815; J2270

== ENCOUNTER 2020-04-21 13:59 | Emergency (ER) | payer OTHER ==
[~2020-04-21] VITALS: Ht 180.3 cm; Wt 78.2 kg
[~2020-04-21 13:59] MED LIST changes: +ATARAX 10MG10 MG/TAB PO; +GLUCOTROL10 MG PO; +INCRUSE EL62.5 MCG/A IH; +NESINA25 PO; +NEURONTIN100 MG/CAP PO; +NORVASC 10MG10 MG PO; +OPTIVE SENSITI0.4 ML OP; +PROAIR HFA0.09 MG/AC IH; +VIAGRA50 M1 PO
[2020-04-21 14:13] VITALS: TEMP 96.9
[2020-04-21 15:56] LABS: BASO # 0.1 (0.0-0.2); BASO % 0.7 % (0.0-2.0); EOS # 0.1 (0.0-0.7); GRAN # 3.9 (1.4-6.5); HEMOGLOBIN 11.4 g/dl (13.5-18.0); LYMPH # 2.4 (1.2-3.4); LYMPH % 33.7 % (20.0-51.0); MEAN CELL VOLUME 84 fl (80.0-100.0); MEAN CORPUSCULAR HEMOGLOBIN 28 pg (27.0-31.0); MEAN CORPUSCULAR HGB CONC 33 g/dl (33.0-37.0); MEAN PLATELET VOLUME 9.5 fl (7.4-10.4); MONO # 0.6 (0.1-0.6); MONO % 8.3 % (1.7-9.3); PLATELET COUNT 273 K/mm3 (130-400); RED BLOOD COUNT 4.12 M/mm3 (4.20-5.60); REDCELL DISTRIBUTION WIDTH-CV 14.1 % (11.5-14.5)
[2020-04-21 16:05] LABS: ALANINE AMINOTRANSFERASE 15 U/L (4-49); ALBUMIN 3.9 gm/dL (3.5-5.0); ALKALINE PHOSPHATASE 39 U/L (50-136); ANION GAP 8 mmol/L (7-16); AST,SGOT 24 U/L (15-37); BILIRUBIN,TOTAL 0.3 mg/dL (0.0-1.0); BLOOD UREA NITROGEN 14 mg/dL (9-20); CALCIUM 9.8 mg/dL (8.4-10.2); CARBON DIOXIDE 26 mmol/L (22-30); CHLORIDE 101 mmol/L (98-107); CREATININE, serum 0.76 (0.66-1.25); GLUCOSE 105 mg/dL (74-106); POTASSIUM 3.6 mmol/L (3.4-5.0); SODIUM 135 mmol/L (137-145); TOTAL PROTEIN 6.5 gm/dL (6.4-8.2)
[2020-04-21 16:06] LABS: HEMATOCRIT 34.6 % (42.0-52.0)
[2020-04-21 16:20] LABS: TROPONIN-I < 0.012 ng/mL (0.000-0.035)
[2020-04-21 16:50] VITALS: BP 133/66; PULSE 61
== END 2020-04-21 16:52 | disposition home or self-care (01) ==
LOC: COL.ER 13:59
PROVIDERS: Nurse Practitioner Primary Care
DX: I10 Essential (primary) hypertension (principal); E11.9 Type 2 diabetes mellitus without complications; J44.9 Chronic obstructive pulmonary disease, unspecified; F17.290 Nicotine dependence, other tobacco product, uncomplicated; Z88.2 Allergy status to sulfonamides; Z88.1 Allergy status to other antibiotic agents; Z79.84 Long term (current) use of oral hypoglycemic drugs

== ENCOUNTER 2020-07-09 20:24 | Inpatient (IN) | payer OTHER ==
[~2020-07-09] VITALS: Ht 180.3 cm; Wt 80.0 kg
[2020-07-09 21:51] LABS: BASO # 0.1 (0.0-0.2); BASO % 0.7 % (0.0-2.0); EOS # 0.3 (0.0-0.7); EOS % 3.3 % (0-4.0); GRAN # 5.6 (1.4-6.5); GRAN % 61.6 % (42.2-75.2); HEMOGLOBIN 10.7 g/dl (13.5-18.0); LYMPH # 2.1 (1.2-3.4); LYMPH % 22.9 % (20.0-51.0); MEAN CELL VOLUME 83 fl (80.0-100.0); MEAN CORPUSCULAR HEMOGLOBIN 27 pg (27.0-31.0); MEAN CORPUSCULAR HGB CONC 32 g/dl (33.0-37.0); MEAN PLATELET VOLUME 9.8 fl (7.4-10.4); MONO % 11.1 % (1.7-9.3); PLATELET COUNT 308 K/mm3 (130-400); REDCELL DISTRIBUTION WIDTH-CV 15.1 % (11.5-14.5)
[2020-07-09 21:57] LABS: HEMATOCRIT 33.2 % (42.0-52.0)
[2020-07-09 22:03] LABS: ALBUMIN 4.3 gm/dL (3.5-5.0); BILIRUBIN,TOTAL 0.2 mg/dL (0.0-1.0); CALCIUM 9.9 mg/dL (8.4-10.2); CREATININE, serum 0.75 (0.66-1.25); POTASSIUM 3.6 mmol/L (3.4-5.0); TOTAL PROTEIN 7.7 gm/dL (6.4-8.2)
[2020-07-10] VITALS (7 sets, daily range): BP systolic 115–154; BP diastolic 59–90; PULSE 79–94; TEMP 98.1–98.7
[2020-07-10 01:04] LABS: ARTERIAL BLD GAS O2 SATURATION 90.6 % (92-100); ARTERIAL BLD GAS TCO2 CT 27.5; ARTERIAL BLOOD GAS BASE EXCESS 1.3 (-2-2); ARTERIAL BLOOD GAS HCO3 26.2 meq/L (22-26); ARTERIAL BLOOD GAS PCO2 42.4 mmHg (35-45); ARTERIAL BLOOD GAS PO2 62.6 mmHg (80-100); ARTERIAL BLOOD GAS pH 7.41 (7.35-7.45)
--- NOTE | 2020-07-10 03:02 | NUR ---
PATIENT ARRIVED TO ROOM 343 FROM THE ED. V/S TAKEN AND ASSESSMENT COMPLETE. RIGHT HEIMLICH CATHETER IN PLACE. PATIENT ORIENTED TO ROOM. CALL LIGHT WITHIN REACH AND BED IN LOWEST POSITION. NO REQUESTS OR CONCERNS VERBALIZED BY PATIENT AT THIS TIME.
[2020-07-10 07:05] LABS: HEMOGLOBIN 10.3 g/dl (13.5-18.0); MEAN CELL VOLUME 83 fl (80.0-100.0); MEAN CORPUSCULAR HEMOGLOBIN 27 pg (27.0-31.0); MEAN CORPUSCULAR HGB CONC 32 g/dl (33.0-37.0); PLATELET COUNT 285 K/mm3 (130-400); RED BLOOD COUNT 3.84 M/mm3 (4.20-5.60); REDCELL DISTRIBUTION WIDTH-CV 14.9 % (11.5-14.5)
[2020-07-10 07:10] LABS: HEMATOCRIT 31.8 % (42.0-52.0)
[2020-07-10 07:37] LABS: CALCIUM 9.1 mg/dL (8.4-10.2); CREATININE, serum 0.55 (0.66-1.25); POTASSIUM 4.1 mmol/L (3.4-5.0)
[2020-07-10 08:44] LABS: BAND 15 % (0-10); LYMPHOCYTE 8 % (20.0-51.0); NEUTROPHILS 75 % (42.0-75.2); PLATELET ESTIMATE NORMAL (NORMAL)
--- NOTE | 2020-07-10 10:13 | NUR ---
I called the Transfer Nurse at [place] at [phone] Ext [phone]. I spoke with Azra concerning transfer to tertiary center. She directed me to call [phone] and speak to Lillian. I called Lillian and she stated she had no beds in for transfer. She stated pt's PCP is Tomasa Taylor. [facility] [place] [id number]. . I then called [phone] for 72 hour notification bed in facility and spoke with Claudette. Anny obtained of [id number]. I then called Azra at [phone] for transfer capability. She will return my call.
--- NOTE | 2020-07-10 11:05 | NUR ---
Pt information faxed per request to . I spoke with Azra and will await call concerning transfer.
--- NOTE | 2020-07-10 12:58 | NUR ---
Cut Roll Machine Offbearer met with patient to discuss discharge planning. Patient lives in [place] with his , Jessica (ph#[phone]) and goes to the [facility] ([facility]. [facility] Patient uses home oxygen from [facility] and no other DME. Patient reports independence with ADLS and plans to return home upon discharge. SW contacted ADDISON John to request PT/OT orders for patient. Discharge Plan: Home, pending PT/OT recommendations.
--- NOTE | 2020-07-10 13:43 | NUR ---
I called Sukumar at [facility] concerning transfer and left message for review of faxed information and where we stand for transfer for this patient. Waiting on return call.
--- NOTE | 2020-07-10 14:23 | NUR ---
I called [facility] with [facility] at [phone] to discuss progress of pt transfer. I had not heard back from PCP. She would investigate and call me back.
--- NOTE | 2020-07-10 14:56 | NUR ---
Sukumar with [facility] returned call- she had not received fax sent in AM. Fax had confirmation. Refaxed pt information to confirmed previous fax number. Gave oral report of pt status to Sukumar. She will be contacting [facility] with transfer and they will let me know of progress.
--- NOTE | 2020-07-10 15:47 | NUR ---
Sukumar with [facility] called- pt is authorized to transfer to any facility we intend to send pt to using the Auth number of [id number]. I called Dr. Carmen/Dr. Magallon and notified them of this information. Chetna CurtisSap Bi Architect notified.
[2020-07-11 04:05] VITALS: BP 148/51; PULSE 85; TEMP 98.1
--- NOTE | 2020-07-11 06:50 | NUR ---
appears to be sleeping, bedside shift report received from ELIOT Anaya
[2020-07-11 07:05] LABS: HEMOGLOBIN 11.1 g/dl (13.5-18.0); MEAN CELL VOLUME 81 fl (80.0-100.0); MEAN CORPUSCULAR HEMOGLOBIN 27 pg (27.0-31.0); MEAN CORPUSCULAR HGB CONC 33 g/dl (33.0-37.0); MEAN PLATELET VOLUME 9.6 fl (7.4-10.4); PLATELET COUNT 348 K/mm3 (130-400); RED BLOOD COUNT 4.17 M/mm3 (4.20-5.60); REDCELL DISTRIBUTION WIDTH-CV 14.9 % (11.5-14.5)
[2020-07-11 07:06] LABS: HEMATOCRIT 33.8 % (42.0-52.0)
[2020-07-11 07:22] LABS: CALCIUM 9.3 mg/dL (8.4-10.2); CREATININE, serum 0.61 (0.66-1.25); POTASSIUM 4.4 mmol/L (3.4-5.0)
--- NOTE | 2020-07-11 07:25 | NUR ---
Dr Carmen was in to see patient, chest tube closed, patient denies pain or shortness of breath at this time, will notify nurse if this changes, denies needs, has ordered breakfast
[2020-07-11 07:27] VITALS: BP 148/71; PULSE 75; TEMP 97.9
--- NOTE | 2020-07-11 08:00 | NUR ---
eating breakfst, states he feels like when he takes a deep breath he is starting to have increased pain on right side, will monitor and he knows to notify nurse if it worsens
--- NOTE | 2020-07-11 08:26 | NUR ---
up and ambulated short distance with physical therapy, then became short of breath and started havintg some pain on right side, resp rate about 40, clamp to heimlich valve opened, O2 sat was 88% and has he rested and clamp left open sat increased to 92% and pain decreased and rate down to 24, Dr Carmen notified and will leave valve open
[2020-07-11 08:47] LABS: ANISOCYTOSIS 1+; BAND 12 % (0-10); LYMPHOCYTE 6 % (20.0-51.0); NEUTROPHILS 81 % (42.0-75.2); PLATELET ESTIMATE NORMAL (NORMAL)
--- NOTE | 2020-07-11 09:00 | NUR ---
resting in bed and continues to deny shortness of breath or pain since opening vlve
--- NOTE | 2020-07-11 09:30 | NUR ---
resting in bed, continues to deny any further shortness of breath or pain, full assessment completed, see interventions for further info, denies needs
--- NOTE | 2020-07-11 11:00 | NUR ---
remains resting in bed without c/os
[2020-07-11 12:10] VITALS: BP 127/57; PULSE 79; TEMP 98.2
--- NOTE | 2020-07-11 12:13 | NUR ---
patient states he has been up to bathroom independently, reminded him he needs to call so we can collect a urine specimen, verbalizes understanding
[2020-07-11 13:19] LABS: COLLECTION METHOD CLEAN CATCH
[2020-07-11 13:31] LABS: PH 6 (5-8); SQUAMOUS EPITHELIAL None Seen /hpf; URINE APPEARANCE Clear; URINE BACTERIA None Seen /hpf; URINE BILIRUBIN Negative (NEGATIVE); URINE BLOOD Negative (NEGATIVE); URINE COLOR Yellow; URINE GLUCOSE Negative (NEGATIVE); URINE KETONE Negative (NEGATIVE); URINE LEUKOCYTE ESTERASE Negative (NEGATIVE); URINE NITRATE Negative (NEGATIVE); URINE PROTEIN(semi-quant) Negative (NEGATIVE); URINE RBC 0-2 /hpf; URINE UROBILINOGEN Negative (NEGATIVE)
--- NOTE | 2020-07-11 13:57 | NUR ---
has his computer at bedside and looking at it, denies needs
[2020-07-11 15:36] VITALS: BP 132/58; PULSE 86; TEMP 98.3
--- NOTE | 2020-07-11 18:02 | NUR ---
sitting up in bed eating supper, family at bedside
--- NOTE | 2020-07-11 18:39 | NUR ---
bedside shift report given to ELIOT Anaya
[2020-07-11 19:22] VITALS: BP 130/51; PULSE 80; TEMP 98.5
--- NOTE | 2020-07-11 20:49 | NUR ---
Pt doing well, no complaints or needs
[2020-07-11 23:08] VITALS: BP 146/66; PULSE 78; TEMP 98.8
[2020-07-12 03:12] VITALS: BP 136/64; PULSE 77; TEMP 97.7
[2020-07-12 06:43] LABS: HEMOGLOBIN 11.2 g/dl (13.5-18.0); MEAN CELL VOLUME 81 fl (80.0-100.0); MEAN CORPUSCULAR HEMOGLOBIN 27 pg (27.0-31.0); MEAN CORPUSCULAR HGB CONC 33 g/dl (33.0-37.0); MEAN PLATELET VOLUME 9.7 fl (7.4-10.4); PLATELET COUNT 335 K/mm3 (130-400); RED BLOOD COUNT 4.15 M/mm3 (4.20-5.60); REDCELL DISTRIBUTION WIDTH-CV 14.8 % (11.5-14.5)
[2020-07-12 06:49] LABS: HEMATOCRIT 33.5 % (42.0-52.0)
[2020-07-12 06:54] LABS: CALCIUM 9.3 mg/dL (8.4-10.2); CREATININE, serum 0.59 (0.66-1.25); POTASSIUM 4.3 mmol/L (3.4-5.0)
[2020-07-12 07:08] VITALS: BP 150/66; PULSE 75; TEMP 97.9
[2020-07-12 07:52] LABS: LYMPHOCYTE 3 % (20.0-51.0); NEUTROPHILS 92 % (42.0-75.2); PLATELET ESTIMATE NORMAL (NORMAL)
[2020-07-12 07:53] LABS: OVALOCYTES 1+; POIKILOCYTOSIS 1+
--- NOTE | 2020-07-12 10:39 | NUR ---
Patient alert and oriented, answers questions appropriately. See assessment. Lungs diminished in bases, clear in upper lobes. Heimlich valve in place to right chest, dressing CDI. VSS. Oxygen at 4l/nc. No c/o at this time.
[2020-07-12 11:47] VITALS: BP 134/64; PULSE 80; TEMP 98.2
[2020-07-12 15:11] VITALS: BP 128/57; PULSE 88; TEMP 98.4
[2020-07-12 19:17] VITALS: BP 137/60; PULSE 78; TEMP 98.4
--- NOTE | 2020-07-12 21:30 | NUR ---
Patient alert and oriented. No complaints of pain at this time. Heimlich to right chest, dressing clean, dry, and intact. Patient is on 5 L of oxygen via nasal cannula. Patient's blood sugar was 233 which required 6 units of novolog. No other needs at this time. Call light in reach.
[2020-07-13] VITALS (7 sets, daily range): BP systolic 117–145; BP diastolic 56–72; PULSE 62–90; TEMP 97.3–99
[2020-07-13 06:33] LABS: HEMOGLOBIN 10.9 g/dl (13.5-18.0); MEAN CELL VOLUME 81 fl (80.0-100.0); MEAN CORPUSCULAR HEMOGLOBIN 27 pg (27.0-31.0); MEAN CORPUSCULAR HGB CONC 33 g/dl (33.0-37.0); MEAN PLATELET VOLUME 9.6 fl (7.4-10.4); PLATELET COUNT 321 K/mm3 (130-400); RED BLOOD COUNT 4.06 M/mm3 (4.20-5.60); REDCELL DISTRIBUTION WIDTH-CV 14.8 % (11.5-14.5)
[2020-07-13 06:42] LABS: CALCIUM 8.9 mg/dL (8.4-10.2); CREATININE, serum 0.61 (0.66-1.25); POTASSIUM 3.6 mmol/L (3.4-5.0)
--- NOTE | 2020-07-13 09:00 | NUR ---
Patient alert and oriented, answers questions appropriately. See assessment. Lungs diminished in lower lobes, clear in upper lobes. Heimlich catheter in place to right chest wall, dressing CDI. VSS. Oxygen at 6l/nc, uses 3l/nc at baseline. No c/o feeling SOA. No SOA with ambulation. No other c/o at this time.
--- NOTE | 2020-07-13 11:02 | NUR ---
Heimlich valve connect to -[address] canister per carmelina swain.
[2020-07-14 04:45] VITALS: BP 157/72; PULSE 85; TEMP 98.3
--- NOTE | 2020-07-14 06:13 | NUR ---
Patient had no complaints of pain throughout the shift. Blood sugars are still running high. Heimlich valve to suction. Dressing clean, dry, and intact. Patient is on 5 L of oxygen via nasal cannula. Denies further needs this morning.
[2020-07-14 07:24] VITALS: BP 140/81; PULSE 79; TEMP 98
[2020-07-14 11:38] VITALS: BP 126/62; PULSE 74; TEMP 98.2
[2020-07-14 15:56] VITALS: BP 102/57; PULSE 73; TEMP 98.4
--- NOTE | 2020-07-14 18:30 | NUR ---
Patient did well today. No complaints of pain. This morning the tubing to his chest tube was twisted. Straightened it out and taped it to his abdomen to keep it in place. Patient was having some pain before that. He denies nausea. He is hoping for an actual plan either to transfer or get chest tube out tomorrow. No other changes at this time. Call light within reach.
[2020-07-14 19:21] VITALS: BP 137/56; PULSE 72; TEMP 98.7
[2020-07-14 23:16] VITALS: BP 118/59; PULSE 76; TEMP 98.7
[2020-07-15 03:21] VITALS: BP 119/64; PULSE 71; TEMP 98.2
[2020-07-15 06:17] LABS: BASO % 0.2 % (0.0-2.0); EOS # 0.2 (0.0-0.7); EOS % 1.7 % (0-4.0); GRAN # 7.3 (1.4-6.5); GRAN % 62.6 % (42.2-75.2); LYMPH % 25.6 % (20.0-51.0); MEAN CELL VOLUME 83 fl (80.0-100.0); MEAN CORPUSCULAR HEMOGLOBIN 27 pg (27.0-31.0); MEAN CORPUSCULAR HGB CONC 33 g/dl (33.0-37.0); MEAN PLATELET VOLUME 9.7 fl (7.4-10.4); MONO # 1.1 (0.1-0.6); PLATELET COUNT 328 K/mm3 (130-400); RED BLOOD COUNT 4.03 M/mm3 (4.20-5.60); REDCELL DISTRIBUTION WIDTH-CV 14.6 % (11.5-14.5)
[2020-07-15 06:23] LABS: HEMATOCRIT 33.3 % (42.0-52.0)
[2020-07-15 06:27] LABS: CALCIUM 9.1 mg/dL (8.4-10.2); CREATININE, serum 0.81 (0.66-1.25); POTASSIUM 3.6 mmol/L (3.4-5.0)
[2020-07-15 07:49] VITALS: BP 134/75; PULSE 73; TEMP 98.4
[2020-07-15 12:00] VITALS: BP 105/57; PULSE 72
[2020-07-15 15:37] VITALS: BP 107/58; PULSE 87; TEMP 98.6
[2020-07-15 19:31] VITALS: BP 116/57; PULSE 76; TEMP 98
--- NOTE | 2020-07-15 20:44 | NUR ---
Received bedside report from ELIOT Freeman. All medications verified and all questions answered. Patient resting in bed watching TV with at bedside. No concerns or complaints noted at this time from patient. Will resume care of patient at this time.
[2020-07-16 00:08] VITALS: BP 115/55; PULSE 70; TEMP 97.4
[2020-07-16 04:10] VITALS: BP 124/72; PULSE 71; TEMP 98.6
[2020-07-16 06:25] LABS: BASO % 0.2 % (0.0-2.0); EOS # 0.2 (0.0-0.7); EOS % 1.7 % (0-4.0); GRAN # 8.6 (1.4-6.5); GRAN % 67.9 % (42.2-75.2); HEMOGLOBIN 10.6 g/dl (13.5-18.0); LYMPH # 2.6 (1.2-3.4); MEAN CELL VOLUME 82 fl (80.0-100.0); MEAN CORPUSCULAR HEMOGLOBIN 27 pg (27.0-31.0); MEAN CORPUSCULAR HGB CONC 32 g/dl (33.0-37.0); MEAN PLATELET VOLUME 9.7 fl (7.4-10.4); MONO % 8.2 % (1.7-9.3); PLATELET COUNT 339 K/mm3 (130-400); RED BLOOD COUNT 3.98 M/mm3 (4.20-5.60); REDCELL DISTRIBUTION WIDTH-CV 14.4 % (11.5-14.5)
[2020-07-16 06:34] LABS: HEMATOCRIT 32.7 % (42.0-52.0)
[2020-07-16 06:41] LABS: CALCIUM 9.3 mg/dL (8.4-10.2); CREATININE, serum 0.89 (0.66-1.25); POTASSIUM 3.7 mmol/L (3.4-5.0)
[2020-07-16 08:00] VITALS: BP 131/62; PULSE 65; TEMP 98.4
--- NOTE | 2020-07-16 08:00 | NUR ---
PATIENT IS A&O. VSS WITH TELE INPLACE. 3L OF OXYGEN WITH SATS IN MID 90'S. NO C/O SOA OR CHEST PAIN. RIGHT HEIMLICH CHEST TUBE TO 15 OF SUCTION. NOTED SCANT RED DRAINAGE. RIGHT LOWER LUNG BASE IS DEMINISHED WITH CLEARS LUNG SOUNDS IN UPPER LOBES. NO COUGH. NO C/O N/V. BREAKFAST TRAY AT BEDSIDE. AM BS WEAS 130, SO SSI REQUIRED. GAVE SCHEDULED AM MEDS. HEAD TO TOE ASSESSMENT IS COMPLETE. INDEPENENT IN ROOM. CALL LIGHT IN REACH. PATIENT WILL LIKELY TRANSFER TO ANOTHER FACILITY TODAY.
[2020-07-16 12:13] VITALS: BP 123/66; PULSE 72; TEMP 98.7
--- NOTE | 2020-07-16 14:38 | NUR ---
Patient to be transferred to [facility] today.
[2020-07-16 15:23] VITALS: BP 114/60; PULSE 78; TEMP 98.5
--- NOTE | 2020-07-16 16:15 | NUR ---
EMS HERE, PATIENT TRANSFERING TO A HIGHER LEVEL OF CARE AT [facility] PATIENT ON 02 @ 2L PER NC AND RIGHT HEIMLICH CHEST TUBE CLAMPED TILL SETTLED INTO THE AMBULANCE. CALLED REPORT TO [facility] NURSE. FOLLOWING EMS. PATIENT DISCHARGED.
== END 2020-07-16 16:15 | disposition short-term general hospital (02) | DRG 190 ==
LOC: COL.ER 20:24 → SURG 22:10
PROVIDERS: Emergency Medicine; Internal Medicine; Nurse Practitioner Family; Physician Assistant; Student in an Organized Health Care Education/Training Program; ADMIT Surgery
PROC: 0W9930Z Drainage of Right Pleural Cavity with Drainage Device, Percutaneous Approach (ICD-10-PCS; principal; 2020-07-09)
DX: J43.9 Emphysema, unspecified (principal); J96.21 Acute and chronic respiratory failure with hypoxia; J93.12 Secondary spontaneous pneumothorax; E87.1 Hypo-osmolality and hyponatremia; J93.82 Other air leak; T60.91XA Toxic effect of unspecified pesticide, accidental (unintentional), initial encounter; E78.5 Hyperlipidemia, unspecified; I10 Essential (primary) hypertension; F43.10 Post-traumatic stress disorder, unspecified; F32.9 Major depressive disorder, single episode, unspecified; E11.40 Type 2 diabetes mellitus with diabetic neuropathy, unspecified; F41.9 Anxiety disorder, unspecified; D64.9 Anemia, unspecified; E87.6 Hypokalemia; G47.00 Insomnia, unspecified; D72.829 Elevated white blood cell count, unspecified; T38.0X5A Adverse effect of glucocorticoids and synthetic analogues, initial encounter; Z87.891 Personal history of nicotine dependence; Z88.2 Allergy status to sulfonamides; Z88.8 Allergy status to other drugs, medicaments and biological substances; Z79.84 Long term (current) use of oral hypoglycemic drugs; Z79.82 Long term (current) use of aspirin
CPT/HCPCS: 99223; 99232-AI; 99239; A7041; A9284; J1170; J1650; J1815; J2920; J3010; J7512

== ENCOUNTER → 2022-04-19 | Outpatient (CLI) | payer OTHER | LOC: COL.RAD 07:30 | DX: Z12.2 Encounter for screening for malignant neoplasm of respiratory organs (principal); J43.2 Centrilobular emphysema; J43.8 Other emphysema; J93.12 Secondary spontaneous pneumothorax; Z87.891 Personal history of nicotine dependence ==

== ENCOUNTER 2023-07-31 21:38 | Inpatient (IN) | payer OTHER ==
[~2023-07-31] VITALS: Ht 177.8 cm; Wt 75.8 kg
[~2023-07-31 21:38] MED LIST changes: -HCTZ 25MG TAB25 MG PO; +HCTZ12.5TAB PO; -LIPITOR 80MG80 MG PO; +LIPITOR20 MG PO; -NORVASC 10MG10 MG PO
[2023-07-31 22:45] LABS: BASO % 0.3 % (0.0-2.0); EOS # 0.2 K/mm3 (0.0-0.7); EOS % 2.9 % (0.0-4.0); GRAN # 4.1 K/mm3 (1.4-6.5); GRAN % 70.6 % (42.2-75.2); LYMPH % 16.8 % (20.0-51.0); MEAN CELL VOLUME 100 fl (80.0-100.0); MEAN CORPUSCULAR HGB CONC 27 g/dl (33.0-37.0); MEAN PLATELET VOLUME 10.2 fl (7.4-10.4); MONO # 0.5 K/mm3 (0.1-0.6); MONO % 9.1 % (1.7-9.3); PLATELET COUNT 259 K/mm3 (130-400); RED BLOOD COUNT 1.94 M/mm3 (4.20-5.60); REDCELL DISTRIBUTION WIDTH-CV 14.6 % (11.5-14.5)
[2023-07-31] MEDS ORDERED: NS 500 ML IV ONE (22:45)
[2023-07-31 22:48] LABS: HEMATOCRIT 19.4 % (42.0-52.0); HEMOGLOBIN 5.3 g/dl (13.5-18.0); MEAN CORPUSCULAR HEMOGLOBIN 27 pg (27-31)
[2023-07-31 23:07] LABS: ALBUMIN 3.2 g/dL (3.4-4.8); BILIRUBIN,TOTAL 0.2 mg/dL (0.2-1.2); CALCIUM 9.5 mg/dL (8.4-10.2); CREATININE, serum 0.88 mg/dL (0.72-1.25); POTASSIUM 3.3 mEq/L (3.5-4.5); TOTAL PROTEIN 5.9 g/dl (6.2-8.1)
[2023-08-01] VITALS (22 sets, daily range): BP systolic 128–172; BP diastolic 52–83; PULSE 61–80; TEMP 97.4–98.9
[2023-08-01] MEDS ORDERED: NS 1,000 ML IV SCH ×2 (00:30→17:30)
[2023-08-01] MEDS ORDERED: Pantoprazole 40 MG in NS 10 ML IV SCH (00:30)
[2023-08-01] MEDS ORDERED: SPIRIVA RE2.5 MCG/Ac IH (00:58)
[2023-08-01] MEDS ORDERED: Albuterol 0.083% Neb Soln 2.5 MG/3 ML UD IH PRN (01:00)
[2023-08-01] MEDS ORDERED: Prazosin 1 MG CAP PO PRN (01:00)
--- NOTE | 2023-08-01 01:44 | NUR ---
Report recieved from Barb MCCABE. All questions answered.
[2023-08-01] MEDS ORDERED: *Potassium Replacement Protocol MC SCH (01:45)
[2023-08-01] MEDS ORDERED: Potassium Chloride 100 ML IV SCH ×2 (01:45→04:00)
--- NOTE | 2023-08-01 01:56 | NUR ---
Patient arrived to room 353 at this time with personal belongings. Denies any pain or needs at this time. Oriented patient to room and call system. Assessment and med rec complete. IV in left AC infuisng without complications. Patient not having any reactions to blood transfusion. VS obtained. Call light and personal items in reach. Bed in low position and bed alarm on.
[2023-08-01] MEDS ORDERED: Dextrose (Glucose) 15 GM (4 x 3.75 GM) Chewable TABLET PACK PO PRN (02:00)
[2023-08-01] MEDS ORDERED: Glucagon 1 MG VIAL IM PRN (02:00)
[2023-08-01] MEDS ORDERED: Dextrose 50% Water 25 GM/50 ML SYRINGE IV PRN (02:00)
[2023-08-01] MEDS ORDERED: VTAMINC250TA PO (02:18)
[2023-08-01] MEDS ORDERED: SENNA-S 50 MG-81 TAB PO (02:19)
[2023-08-01] MEDS ORDERED: FERROUS GL325 MG/TAB PO (02:20)
[2023-08-01] MEDS ORDERED: CYMBALTA 60MG60 MG PO (02:20)
[2023-08-01] MEDS ORDERED: FOLIC ACID 11 MG/TA1 PO (02:21)
[2023-08-01] MEDS ORDERED: MUCUS RELIEF400 M1 PO (02:22)
[2023-08-01] MEDS ORDERED: SINGULAIR 110 MG/TAB PO (02:24)
[2023-08-01] MEDS ORDERED: PRILOSEC 20MG20 MG PO (02:24)
[2023-08-01] MEDS ORDERED: INDERAL 10MG10 MG PO (02:25)
[2023-08-01] MEDS ORDERED: Montelukast 10 MG TAB PO PRN (02:30)
[2023-08-01] MEDS ORDERED: Docusate Sodium 100 MG CAP PO PRN (02:30)
[2023-08-01 04:42] LABS: BASO % 0.3 % (0.0-2.0); EOS # 0.2 K/mm3 (0.0-0.7); EOS % 2.8 % (0.0-4.0); GRAN # 4.3 K/mm3 (1.4-6.5); GRAN % 74.5 % (42.2-75.2); LYMPH # 0.8 K/mm3 (1.2-3.4); LYMPH % 13.6 % (20.0-51.0); MEAN CORPUSCULAR HGB CONC 30 g/dl (33.0-37.0); MEAN PLATELET VOLUME 9.9 fl (7.4-10.4); MONO # 0.5 K/mm3 (0.1-0.6); MONO % 8.5 % (1.7-9.3); PLATELET COUNT 227 K/mm3 (130-400); RED BLOOD COUNT 2.11 M/mm3 (4.20-5.60); REDCELL DISTRIBUTION WIDTH-CV 14.7 % (11.5-14.5)
[2023-08-01 04:48] LABS: HEMATOCRIT 19.9 % (42.0-52.0); MEAN CELL VOLUME 94 fl (80.0-100.0); MEAN CORPUSCULAR HEMOGLOBIN 28 pg (27-31)
--- NOTE | 2023-08-01 04:50 | NUR ---
Hospitalist Yareli called with critical lab value for Hgb of 6.0. Recieved new orders for another unit of blood and recheck H&H 30min after transfusion is complete.
[2023-08-01 04:51] LABS: CALCIUM 8.6 mg/dL (8.4-10.2); CREATININE, serum 0.79 mg/dL (0.72-1.25); POTASSIUM 3.4 mEq/L (3.5-4.5)
--- NOTE | 2023-08-01 05:45 | NUR ---
Patient resting in bed. Denie any pain or needs. Blood glucose is 135 this am. Patient has recieved one unit of blood and Hgb came up to 6.0 from 5.3 and waiting on second unit to be ready for transfusion. IV started in left forearm for meds and maintenance fluids. Call light and personal items in reach. Bed in low positon and bed alarm on.
[2023-08-01] MEDS ORDERED: Insulin Lispro (HumaLOG) SQ SCH (06:00)
[2023-08-01] MEDS ORDERED: Carboxymethylcellulose PF Ophth 0.4 ML DROPPERETTE OP SCH (09:00)
[2023-08-01] MEDS ORDERED: DULoxetine 60 MG CAP PO SCH (09:00)
[2023-08-01] MEDS ORDERED: Ascorbic Acid 500 MG TAB PO SCH (09:00)
[2023-08-01] MEDS ORDERED: hydroCHLOROthiazide 25 MG TAB PO SCH (09:00)
[2023-08-01] MEDS ORDERED: amLODIPine 5 MG TAB PO SCH (09:00)
[2023-08-01] MEDS ORDERED: Tiotropium 2.5 MCG Respimat MDI IH SCH (09:00)
[2023-08-01] MEDS ORDERED: Folic Acid 1 MG TAB PO SCH (09:00)
[2023-08-01] MEDS ORDERED: Losartan 50 MG TAB PO SCH (09:00)
[2023-08-01] MEDS ORDERED: Gabapentin 100 MG CAP PO SCH (09:00)
--- NOTE | 2023-08-01 09:00 | NUR ---
PATIENT SITTING UP IN BED UPON ENTERING ROOM. MORNING MEDICATIONS ADMINISTERED. SHIFT ASSESSMENT COMPLETED. PATIENT DENIES ANY PAIN OR SOB. CURRENTLY ON 2L O2 VIA NC. PATIENT CONTINUES TO HAVE DARK STOOLS. UPDATED ON PLAN OF CARE. WILL CONTINUE TO MONITOR.
--- NOTE | 2023-08-01 09:06 | NUR ---
computer recycling worker met with pt to discuss discharge planning. He lives with his , Jessica [phone] in [place]. He sees a PCP at the [facility] in [place] and obtains medications from there as well with no issues. He reports to be on Team 1. He is independent with ADLS and uses a FWW and oxygen when walking and at [facility]. He does not have a DPOA-HC. SW advised PT/OT were pending and will visit with him to make sure he is safe to return home once his hemogoblin increases. Pt verbalized understanding. PT/OT Pending Discharge Plan: home
[2023-08-01] MEDS ORDERED: ANTACID200 MG PO (12:22)
[2023-08-01] MEDS ORDERED: VITAMIN D 400400 IU PO (12:22)
[2023-08-01] MEDS ORDERED: IBU800 M1 PO (12:24)
--- NOTE | 2023-08-01 13:35 | NUR ---
D: Clean Room Technician stopped by room on rounds. A: Pt was resting and content with his meter attendant in the room. Pt is well taken care of by his rastafari. Pt has no needs right now. P: Clean Room Technician informed pt that if he needed anything from the jewish thought professor area to let his nurse know. Clean Room Technician will follow up as needed.
[2023-08-01 15:11] LABS: HEMATOCRIT 24.1 % (42.0-52.0); HEMOGLOBIN 7.3 g/dl (13.5-18.0)
[2023-08-01] MEDS ORDERED: Ondansetron 4 MG/2 ML VIAL IV PRN (15:30)
[2023-08-01] MEDS ORDERED: LR 1,000 ML IV SCH (17:00)
[2023-08-01] MEDS ORDERED: Polyethylene Glycol 3350 119 GM BOTTLE PO SCH (17:00)
[2023-08-01] MEDS ORDERED: Sertraline 100 MG TAB PO SCH (21:00)
[2023-08-01] MEDS ORDERED: Atorvastatin 20 MG TAB PO SCH (21:00)
--- NOTE | 2023-08-01 21:00 | NUR ---
Patient resting in bed. Denies any pain. Needs met. Assessment compelte. IV in left forearm and left AC both flush/ infusing without complications. Call light and personal items in reach. Bed in low position.
[2023-08-02] VITALS (8 sets, daily range): BP systolic 127–172; BP diastolic 60–78; PULSE 57–85; TEMP 97.5–98.8
[2023-08-02] MEDS ORDERED: hydrALAZINE 20 MG/ML 1 ML VIAL IV PRN (01:00)
[2023-08-02 06:49] LABS: BASO % 0.3 % (0.0-2.0); EOS # 0.1 K/mm3 (0.0-0.7); GRAN # 4.7 K/mm3 (1.4-6.5); GRAN % 79.4 % (42.2-75.2); LYMPH # 0.6 K/mm3 (1.2-3.4); LYMPH % 9.5 % (20.0-51.0); MEAN CELL VOLUME 91 fl (80.0-100.0); MEAN CORPUSCULAR HGB CONC 31 g/dl (33.0-37.0); MEAN PLATELET VOLUME 10.5 fl (7.4-10.4); MONO # 0.5 K/mm3 (0.1-0.6); MONO % 8.5 % (1.7-9.3); PLATELET COUNT 258 K/mm3 (130-400); RED BLOOD COUNT 2.94 M/mm3 (4.20-5.60); REDCELL DISTRIBUTION WIDTH-CV 17.1 % (11.5-14.5)
[2023-08-02 06:51] LABS: HEMATOCRIT 26.6 % (42.0-52.0); HEMOGLOBIN 8.2 g/dl (13.5-18.0); MEAN CORPUSCULAR HEMOGLOBIN 28 pg (27-31)
[2023-08-02 07:01] LABS: CALCIUM 9.1 mg/dL (8.4-10.2); CREATININE, serum 0.75 mg/dL (0.72-1.25); POTASSIUM 3.7 mEq/L (3.5-4.5)
[2023-08-02] MEDS ORDERED: hydroCHLOROthiazide 12.5 MG CAP PO SCH (09:00)
[2023-08-02] MEDS ORDERED: Glycopyrrolate 0.2 MG/ML 1 ML VIAL ONE (09:45)
[2023-08-02] MEDS ORDERED: Lidocaine PF 2% (20 MG/ML) 5 ML VIAL ONE (09:45)
--- NOTE | 2023-08-02 11:51 | NUR ---
Patient alert and oriented x4. Denies pain. Maintained NPO status this morning for EGD/colonoscopy. Left for procedure and returned around 1055. VSS. Morning medications administered upon return, tolerating PO intake well. Stable on 4L, O2 increased from 2L to 4L during procedure per endo RN. Call light within reach, all needs met at this time.
--- NOTE | 2023-08-02 15:39 | NUR ---
Patient's vital signs following procedure remain stable. Tolerating food and fluids PO well. Alert and oriented x4. Activity at baseline. Discharge orders obtained. Discharge instructions discussed with patient including [facility] as [facility]. Also discussed stopping Aspirin and Ibuprofen per orders, and education packets. Patient verbalized understanding. IV discontinued to left forearm and left AC with no complications, tip intact. Patient escorted out by and staff via wheelchair.
== END 2023-08-02 15:30 | disposition home or self-care (01) | DRG 378 ==
LOC: COL.ER 21:38 → MEDICAL 08-01 00:41
PROVIDERS: Internal Medicine; Internal Medicine Gastroenterology; Nurse Practitioner Family; Personal Emergency Response Attendant; Physician Assistant; ADMIT Internal Medicine
PROC: 30233N1 Transfusion of Nonautologous Red Blood Cells into Peripheral Vein, Percutaneous Approach (ICD-10-PCS; 2023-08-01)
PROC: 0DJD8ZZ Inspection of Lower Intestinal Tract, Via Natural or Artificial Opening Endoscopic (ICD-10-PCS; 2023-08-02)
PROC: 0DB98ZX Excision of Duodenum, Via Natural or Artificial Opening Endoscopic, Diagnostic (ICD-10-PCS; principal; 2023-08-02 13:00)
PROC: 0DB68ZX Excision of Stomach, Via Natural or Artificial Opening Endoscopic, Diagnostic (ICD-10-PCS; 2023-08-02 13:00)
DX: K31.811 Angiodysplasia of stomach and duodenum with bleeding (principal); E87.20 Acidosis, unspecified; J96.11 Chronic respiratory failure with hypoxia; K31.89 Other diseases of stomach and duodenum; I10 Essential (primary) hypertension; E78.5 Hyperlipidemia, unspecified; G47.00 Insomnia, unspecified; F32.A Depression, unspecified; D50.9 Iron deficiency anemia, unspecified; K57.30 Diverticulosis of large intestine without perforation or abscess without bleeding; I08.3 Combined rheumatic disorders of mitral, aortic and tricuspid valves; E87.6 Hypokalemia; E11.42 Type 2 diabetes mellitus with diabetic polyneuropathy; K21.9 Gastro-esophageal reflux disease without esophagitis; J43.9 Emphysema, unspecified; Z79.899 Other long term (current) drug therapy; Z79.84 Long term (current) use of oral hypoglycemic drugs; Z79.82 Long term (current) use of aspirin; Z87.891 Personal history of nicotine dependence; Z99.81 Dependence on supplemental oxygen; Z88.2 Allergy status to sulfonamides; Z85.46 Personal history of malignant neoplasm of prostate; Z88.8 Allergy status to other drugs, medicaments and biological substances; Z88.1 Allergy status to other antibiotic agents
CPT/HCPCS: A9270; C9113; J0360; J1815; J2704; J3480; J7030; J7040; P9016